=== PATIENT | female | born 1995 | race Caucasian/White ===

== ENCOUNTER 2021-06-12 18:59 | Emergency (ER) | payer BC, SELFPAY ==
--- NOTE | 2021-06-12 19:16 | PC.NURSE ---
No answer at 6, called back for triage.
--- NOTE | 2021-06-12 19:40 | PC.NURSE ---
Pt called for triage, no response at this time.
== END 2021-06-12 19:54 | disposition left against medical advice (07) ==
LOC: ANHED 19:53
PROVIDERS: PCP Family Medicine Adolescent Medicine
DX: Z53.21 Procedure and treatment not carried out due to patient leaving prior to being seen by health care provider (principal)
CPT/HCPCS: 99199

== ENCOUNTER 2021-06-12 19:39 | Emergency (ER) | payer BC, SELFPAY ==
--- NOTE | ~2021-06-12 | CT_ITS ---
EXAMINATION: CT abdomen pelvis w con DATE: 06/12/2021 21:22 INDICATION: Central periumbilical abdominal pain. History of gastric sleeve surgery 9 months ago. TECHNIQUE: Computed tomography (CT) of the abdomen and pelvis was performed with 100 cc Omnipaque 350 intravenous contrast. Automated exposure control and iterative reconstruction technique were employe d. Exam dose: 479.19 mGy-cm total exam DLP. COMPARISON: None. FINDINGS: There are a couple of right middle lobe calcified pulmonary nodules. The included lower keith g zones are clear of infiltrate or consolidation. Normal heart size. No pericardial or pleural effusion. Status post gastric sleeve surgery. The liver, gallbladder, bile ducts, pancreas and pancreatic duct as well as the spleen, and adrenal g lands and kidneys are unremarkable. No urinary tract calculus or hydroureteronephrosis. The urinary b ladder is relatively evacuated. 2.5 cm left ovarian cyst. Uterus and adnexal areas are otherwise unremarkable. Normal caliber of the abdominal aorta. No intraperitoneal or retroperitoneal or pelvic mass lesion or adenopathy or ascites is evident. No bowel obstruction or intraperitoneal free air. Normal appendix. Included skeletal structures are unremarkable. IMPRESSION: 2.5 cm left ovarian cyst Status post gastric sleeve surgery; no complication is visualized. Normal appendix Reviewed, dictated and finalized at [facility]. Reviewed, dictated and finalized at [facility]. [employer] WORK[employer]
[2021-06-12 19:45] VITALS: BP 104/65; PULSE 80; RESP 18; TEMP 36.4; O2SAT 99
--- NOTE | 2021-06-12 19:57 | ED.GENADULT ---
HPI - General Adult General Chief complaint: Abdominal Pain Stated complaint: abd pain Source: patient and family Mode of arrival: ambulatory History of Present Illness HPI narrative: Honey is a 26F with a PMH of PCOS, gastric sleeve surgery that presented to the emergency department with abdominal pain. It is a cramping abdominal pain that radiates to her RLQ and LLL. She denies any N/V and diarrhea. She had a BM today. She denies any fevers, chills, CP, SOB and lightheadedness. Related Data Home Medications Medication Instructions Recorded Confirmed methylphenidate HCl 27 mg PO BOLUS 06/12/21 06/12/21 venlafaxine 75 mg PO DAILY 06/12/21 06/12/21 Allergies Allergy/AdvReac Type Severity Reaction Status Date / Time No Known Allergies Allergy Unverified 03/18/18 16:00 Review of Systems Constitutional: Constitutional: Reports no additional constitutional complaints Eyes: Eyes: Reports no additional eye complaints ENT: Reports system reviewed and no additional complaints, except as documented Cardiovascular: Cardiovascular: Reports no additional cardiovascular complaints Respiratory: Respiratory: Reports no additional respiratory complaints Gastrointestinal: Gastrointestinal: Reports as per HPI Genitourinary: Genitourinary: Reports no additional female genitourinary complaints Musculoskeletal: Musculoskeletal: Reports no additional musculoskeletal complaints Integumentary/Breasts: Skin/Breast: Reports system reviewed and no additional complaints, except as docu Neurologic: Reports system reviewed and no additional complaints, except as documented Psychiatric: Psychiatric: Reports no additional psychiatric complaints Endocrine: Endocrine: Reports no additional endocrine complaints Hematologic/Lymphatic: Hematologic/Lymphatic: Reports no additional hematologic/lymphatic complaints Allergic/Immunologic: Allergic/Immunologic: Reports no additional allergic/immunologic complaints Exam Const: General: no acute distress and alert Orientation/consciousness: patient oriented x3 Limitations: No altered mental status HENMT: Head: normal to inspection Other: normocephalic, atraumatic Eyes: Pupils: Equal, round and reactive pupils present Neck: Neck: normal visual inspection Chest: Chest palpation & inspection: normal inspection of the chest Resp: Effort & Inspection: normal respiratory effort Auscultation: clear to auscultation bilaterally Cardio: Rate: regular rate Rhythm: regular rhythm GI: GI Palp: Yes Soft to palpation, Yes Tenderness to palpation present (GI) (diffusely TTP, most TTP in the RLQ and above the right iliac fossa ), No Guarding due to palpation present (GI), No Rigid due to palpation, No Palpable mass present and No Rebound tenderness present Other: negative obturator and psoas signs : General: Yes no CVA tenderness Other: Significant suprapubic tenderness Skin: General skin exam: normal color Rashes: no rashes Neuro: General: patient oriented x3 Extrem: General: normal to inspection Psych: Appearance: grossly normal Mental Status: mental status grossly normal Course Course Emergency Course: Honey declined pain meds. Labs showed some anemia and an elevated CRP so a CT was ordered. EXAMINATION: CT abdomen pelvis w con DATE: 06/12/2021 21:22 INDICATION: Central periumbilical abdominal pain. History of gastric sleeve surgery 9 months ago. TECHNIQUE: Computed tomography (CT) of the abdomen and pelvis was performed with 100 cc Omnipaque 350 intravenous contrast. Automated exposure control and iterative reconstruction technique were employed. Exam dose: 479.19 mGy-cm total exam DLP. COMPARISON: None. FINDINGS: There are a couple of right middle lobe calcified pulmonary nodules. The included lower lung zones are clear of infiltrate or consolidation. Normal heart size. No pericardial or pleural effusion. Status post gastric sleeve surgery. The liver, gallblad
[2021-06-12 20:29] LABS: Basophils Absolute Auto 0.01 K/mm3 (0.00-0.10); Basophils Percent Auto 0.1 % (0.0-1.0); Eosinophils Absolute Auto 0.04 K/mm3 (0.02-0.50); Eosinophils Percent Auto 0.5 % (1.0-6.0); Hematocrit 31.9 % (35.0-49.0); Hemoglobin 10.9 g/dL (12.0-15.0); Immature Granulocyte Absolute 0.03 K/mm3 (0.00-0.00); Immature Granulocyte Percent A 0.4 % (0.0-0.0); Lymphocytes Absolute Auto 1.77 K/mm3 (1.10-4.50); Lymphocytes Percent Auto 21.4 % (18.0-42.0); Mean Corpuscular HGB Conc 34.2 g/dL (32.0-36.0); Mean Corpuscular Hemoglobin 31.2 pg (27.0-31.0); Mean Corpuscular Volume 91.4 fL (78.0-102.0); Mean Platelet Volume 11.2 fl (9.2-11.8); Monocytes Absolute Auto 0.51 K/mm3 (0.10-0.90); Monocytes Percent Auto 6.2 % (2.0-11.0); Neutrophils Absolute Auto 5.9 K/mm3 (1.7-7.2); Neutrophils Percent Auto 71.4 % (50.0-70.0); Platelet Count Result 153 K/mm3 (150-420); Red Blood Count 3.49 M/mm3 (4.20-5.40); Red Cell Distribution Width 12.2 % (11.6-14.4); White Blood Count 8.3 K/mm3 (4.8-10.8)
[2021-06-12 20:35] LABS: Appearance Urine Clear (Clear); Bilirubin Urine 2+ (Negative); Blood Urine Negative (Negative); Glucose Urine UA Negative (Negative); Ketones Urine 2+ (Negative); Leukocyte Esterase Ur Trace (Negative); Nitrate Urine Negative (Negative); Protein Urine 1+ (Negative); Specific Grav Ur >= 1.030 (1.010-1.020); pH Urine 5.5 (5.0-8.0)
[2021-06-12 20:42] LABS: Add Urine Microscopic? YES; Color Urine Dark Orange (Yellow); RBC Urine 0-2 /hpf (0-2); Squamous Epithelial Cell Urine Few /hpf (Few); WBC Urine 0-3 /hpf (0-3)
[2021-06-12 20:43] LABS: Pregnancy On Board Control Positive; Urine Pregnancy Test Negative
[2021-06-12 20:43] LABS: Bacteria Urine Trace /hpf; Mucus Urine Moderate /lpf
[2021-06-12 20:48] LABS: Lactic Acid Reflex 0.7 mmol/L (0.4-2.0); SARS-CoV-2 Ag Negative (Negative)
[2021-06-12 20:52] LABS: Alanine Aminotransferase 16 U/L (14-59); Albumin Level 3.5 g/dL (3.4-5.0); Alkaline Phosphatase 47 U/L (46-116); Anion Gap 6 mmol/L (8-16); Aspartate Amino Transferase 11 U/L (15-37); Bilirubin,Total 0.5 mg/dL (0.00-1.00); Blood Urea Nitrogen 9 mg/dL (7-18); Calcium 8.7 mg/dL (8.5-10.1); Carbon Dioxide 29 mmol/L (21-32); Chloride 105 mmol/L (98-108); Estimated CRCL calculation 116 ml/min; Estimated Glomerular Filt Rate > 60; Glucose 81 mg/dL (70-99); Osmolality Calculated 287 mOsm/kg (285-295); Potassium 3.5 mmol/L (3.5-5.1); Sodium 140 mmol/L (136-145); Total Protein 6.4 g/dL (6.4-8.2)
[2021-06-12 20:53] LABS: CRP 6.5 mg/dL (0.0-0.9)
[2021-06-12 21:30] VITALS: BP 110/75; PULSE 65; RESP 18; O2SAT 100
[2021-06-12 22:19] VITALS: BP 117/70; PULSE 80; RESP 18; TEMP 36.6; O2SAT 98
== END 2021-06-12 22:24 | disposition home or self-care (01) ==
PROVIDERS: Emergency Provider Family Medicine; PCP Family Medicine Adolescent Medicine
DX: N83.202 Unspecified ovarian cyst, left side (principal); Z20.822 Contact with and (suspected) exposure to COVID-19
CPT/HCPCS: 36415; 74177; 80053; 81001; 81025; 83605; 85025; 86140; 87426; 99282; 99284; C9803; Q9967

== ENCOUNTER 2021-12-01 14:17 | Outpatient (CLI) | payer BC, SELFPAY ==
--- NOTE | ~2021-12-01 | US_ITS ---
US OB <= 14 weeks fetus DATE: 12/01/2021 14:43 INDICATION: Uncertain dates TECHNIQUE: Real-time imaging and Doppler analysis COMPARISON: None FINDINGS: Live campbell intrauterine gestation, fetus in longitudinal lie, breech presentation with heart rate of 153 bpm. Anterior placenta, lower margin 3 cm above the internal os. Subjectively normal amount of amniotic fluid. [place]-rump length 8.44 cm; 14 weeks 2 days Biparietal diameter 2.57 cm; 14 weeks 3 days Head circumference 9.74 cm; 14 weeks 3 days Abdominal circumference 7.80 cm; 14 weeks 2 days Femur length 1.42 cm; 14 weeks 1 day Composite age by Hadlock formula is 14 weeks 2 days +/- 1 week, with OLVIN of 05/30/2022. Estimated weight is 93.1 +/- 14 g. Estimated weight GP: 40.3% Head circumference/abdominal circumference 1.25, within normal range of 1.08-1.36 IMPRESSION: Estimated gestational age is 14 weeks 2 days +/- 1 week, with OLVIN of 05/30/2022 Breech presentation Reviewed, dictated and finalized at [facility]. Reviewed, dictated and finalized at [facility]. IMPRESSION: Estimated gestational age is 14 weeks 2 days +/- 1 week, with OLVIN o f 05/30/2022 Breech presentation
== END 2021-12-01 14:18 ==
PROVIDERS: PCP Family Medicine Adolescent Medicine; Visit Provider Obstetrics & Gynecology Gynecology
DX: Z36.87 Encounter for antenatal screening for uncertain dates (principal); Z3A.14 14 weeks gestation of pregnancy
CPT/HCPCS: 76801

== ENCOUNTER 2021-12-01 15:30 | Outpatient (CLI) | payer BC, SELFPAY ==
[2021-12-01 15:53] LABS: Basophils Absolute Auto 0.01 K/mm3 (0.00-0.10); Basophils Percent Auto 0.2 % (0.0-1.0); Eosinophils Absolute Auto 0.02 K/mm3 (0.02-0.50); Eosinophils Percent Auto 0.3 % (1.0-6.0); Hematocrit 33.3 % (35.0-49.0); Hemoglobin 11.6 g/dL (12.0-15.0); Immature Granulocyte Absolute 0.02 K/mm3 (0.00-0.00); Immature Granulocyte Percent A 0.3 % (0.0-0.0); Lymphocytes Absolute Auto 1.26 K/mm3 (1.10-4.50); Lymphocytes Percent Auto 20.1 % (18.0-42.0); Mean Corpuscular HGB Conc 34.8 g/dL (32.0-36.0); Mean Corpuscular Hemoglobin 31.6 pg (27.0-31.0); Mean Corpuscular Volume 90.7 fL (78.0-102.0); Mean Platelet Volume 9.9 fl (9.2-11.8); Monocytes Absolute Auto 0.26 K/mm3 (0.10-0.90); Monocytes Percent Auto 4.2 % (2.0-11.0); Neutrophils Absolute Auto 4.7 K/mm3 (1.7-7.2); Neutrophils Percent Auto 74.9 % (50.0-70.0); Platelet Count Result 187 K/mm3 (150-420); Red Blood Count 3.67 M/mm3 (4.20-5.40); Red Cell Distribution Width 12.4 % (11.6-14.4); White Blood Count 6.3 K/mm3 (4.8-10.8)
[2021-12-01 16:16] LABS: Hemoglobin A1C 4.8 % (<5.7)
[2021-12-01 16:43] LABS: Free T4 Free Thyroxine 0.95 ng/dL (0.76-1.46); Thyroid Stimulating Hormone 2.37 uIU/mL (0.36-3.74); Vitamin B12 581 pg/mL (193-986)
[2021-12-01 16:59] LABS: HIV 1 P24 AG Negative (Negative); HIV 1/2 AB Negative (Negative)
[2021-12-04 14:51] LABS: RPR Screen Non-Reactive (Non-Reactive)
[2021-12-05 03:50] LABS: Hepatitis B Surface Antigen Nonreactive (Nonreactive); Hepatitis C Signal to Cutoff 0.01 ratio (<1.00); Hepatitis C Virus Antibody Nonreactive (Nonreactive)
[2021-12-06 09:33] LABS: Rubella IgG Antibody 2.45 Index
[2021-12-06 14:04] LABS: Vitamin D 25 Hydroxy 34 ng/mL (30-100)
== END 2021-12-01 15:31 | disposition home or self-care (01) ==
PROVIDERS: PCP Family Medicine Adolescent Medicine; Visit Provider Obstetrics & Gynecology Gynecology
DX: Z36.9 Encounter for antenatal screening, unspecified (principal)
CPT/HCPCS: 36415; 82306; 82607; 83036; 84439; 84443; 85025; 86592; 86703; 86705; 86762; 86850; 86900; 86901; 87522

== ENCOUNTER 2022-01-05 10:20 | Outpatient (CLI) | payer BC, SELFPAY ==
--- NOTE | ~2022-01-05 | US_ITS ---
EXAMINATION: US OB /maternal detail DATE: 01/05/2022 11:15 INDICATION: Encounter for screening, unspecified. TECHNIQUE: Real-time ultrasound of the pelvis was performed. COMPARISON: Ultrasound 12/01/2021 FINDINGS: There is a single living fetus in vertex presentation. The placenta is anterior, 7.3 cm from the cer vix. heart rate is 138 beats per minute (bpm). The amniotic fluid volume is subjectively normal . The cervical length is normal. The following biometric data were obtained: Biparietal diameter (BPD): 4.3 cm; head circumference (HC): 16.3 cm; abdominal circumference (AC): 13 .3 cm; femur length (FL): 2.6 cm. These measurements are concordant. Estimated weight is 243 g +/- 36 g, which correlates with the 11th percentile when 05/30/22 is used as estimated date of delivery. As single measurements, these parameters are each equal to the following estimated gestational ages w ith ranges of +/- 2 standard deviations: BPD: 18 weeks 6 days (17 weeks 1 days - 20 weeks 5 days). HC: 19 weeks 1 days (17 weeks 4 days - 20 weeks 4 days). AC: 18 weeks 6 days (16 weeks 5 days - 20 weeks 6 days). FL: 18 weeks 0 days (16 weeks 4 days - 19 weeks 2 days). estimated gestational age based solely on measurements from this exam is 18 weeks 5 days +/- 1 weeks 2 days. The cerebral ventricles, cerebellum, cisterna magna, nuchal fold, lip, and visualized portions of the spine are normal. The heart is normal. The diaphragm, stomach, kidneys, and bladder are normal. Ther e are two umbilical arteries to yield a 3-vessel cord. The cord insertion is normal. IMPRESSION: 1. Single living fetus in vertex presentation. 2. Estimated weight is 243 g +/- 36 g, which correlates with the 11th percentile when 05/30/22 is used as estimated date of delivery. This date was set by ultrasound on 12/01/2021. 3. Normal anatomic survey. Reviewed, dictated and finalized at [facility]. IMPRESSION: 1. Single living fetus in vertex presentation. 2. Estimated weight is 243 g +/- 36 g, which correlates with the 11th pe rcentile when 05/30/22 is used as estimated date of delivery. This date was set by ultrasound on 12/01/2021. 3. Normal anatomic survey.
== END 2022-01-05 10:21 ==
PROVIDERS: PCP Family Medicine Adolescent Medicine; Visit Provider Obstetrics & Gynecology Gynecology
DX: Z36.9 Encounter for antenatal screening, unspecified (principal); Z3A.00 Weeks of gestation of pregnancy not specified
CPT/HCPCS: 76805

== ENCOUNTER 2022-03-15 12:08 | Outpatient (CLI) | payer SELFPAY ==
[2022-03-15 13:23] LABS: Hematocrit 31.7 % (35.0-49.0); Hemoglobin 10.9 g/dL (12.0-15.0)
[2022-03-15 13:48] LABS: HIV 1 P24 AG Negative (Negative); HIV 1/2 AB Negative (Negative)
[2022-03-15 13:49] LABS: Free T4 Free Thyroxine 0.83 ng/dL (0.76-1.46); Thyroid Stimulating Hormone 1.34 uIU/mL (0.36-3.74)
[2022-03-15 13:50] LABS: Glucose 1 Hour PP 50gm Dose 102 mg/dL (70-130)
[2022-03-17 21:46] LABS: Vitamin D 25 Hydroxy 38 ng/mL (30-100)
== END 2022-03-15 12:09 | disposition home or self-care (01) ==
LOC: CHSLAB 12:11
PROVIDERS: PCP Family Medicine Adolescent Medicine; Visit Provider Advanced Practice Midwife
DX: E03.9 Hypothyroidism, unspecified (principal); Z36.9 Encounter for antenatal screening, unspecified
CPT/HCPCS: 36415; 82306; 82947; 84439; 84443; 85014; 85018; 86703

== ENCOUNTER 2022-05-22 12:32 | Outpatient (CLI) | payer BC, OTHER, SELFPAY ==
[2022-05-22 13:22] LABS: Hematocrit 33.3 % (37.0-47.0); Hemoglobin 11.6 g/dL (12.0-15.0); Immature Platelet Fraction Pct 9.4 % (0.9-11.2); Mean Corpuscular HGB Conc 34.8 g/dl (32-36); Mean Corpuscular Hemoglobin 30.6 pg (26-34); Mean Corpuscular Volume 87.9 fl (80-100); Mean Platelet Volume 11.4 fl (7.4-10.4); Platelet Count Result 149 k/mm3 (150-375); Red Blood Count 3.79 M/mm3 (4.2-5.4); Red Cell Distribution Width 12.6 % (11.5-14.5)
[2022-05-22 16:13] LABS: Rapid Plasma Reagin Non-Reactive (NonReactive)
== END 2022-05-22 12:33 | disposition home or self-care (01) ==
LOC: ANHLAB 12:35
PROVIDERS: PCP Family Medicine Adolescent Medicine; Visit Provider Obstetrics & Gynecology Gynecology
DX: Z01.818 Encounter for other preprocedural examination (principal)
CPT/HCPCS: 36415; 85027; 85055; 86592; 86850; 86900; 86901

== ENCOUNTER 2022-05-23 05:21 | Inpatient (IN) | payer BC, OTHER, SELFPAY ==
--- NOTE | 2022-05-22 21:43 | PM.IMHP ---
H&P: HPI History of Present Illness Date/Time: 05/22/22 21:43 Chief Complaint: repeat csection and BTL Narrative: 27 yo admitted at 39 wks for repeat csection and BTL. Options for delivery were reviewed with the risks of and repeat csection. The patient declines trial of labor. She has completed her childbearing and wishes to proceed with permanent steilization. The patient is aware this is a permanent procedure rendering her unable to conceive. Discussed risks including failure with increased risk of ectopic if fails. She agrees to proceed. Patient has been uncomplicated. labs : A+, RPR -, HIV-, HBSAg -, GBS +, Rubella Immune. Review of Systems Review of Systems: Good movement, no contractions, no PIH sx. PMFSH Past Medical History Medical History (Updated 05/22/22 @ 21:51 by Hiral Gore MD) Attention-deficit hyperactivity disorder, predominantly inattentive type Delivery with history of 39 wks breech with GDMA2 LTCS 6#15 oz female Hypothyroid Marijuana use quit with PCOS (polycystic ovarian syndrome) Surgical History Surgical History (Updated 05/22/22 @ 21:51 by Hiral Gore MD) History of bariatric surgery 08/2020 gastric sleeve Family History Family History Father Acute myocardial infarction Cerebrovascular accident Heart disease Hypertension Grandparent Acute myocardial infarction Heart disease Hypertension Grandparent Depression Hypertension Sibling Depression Mother Hypertension Social History Social History Smoking packs per day: 1 Smoking cigarettes per day: 20.0 Years smoked: 7 Smoking pack-years: 7.00 Smoking status: Former smoker Tobacco type: cigarettes Smoking end date: 06/17/16 Alcohol intake: never Substance use: never Substance use type: marijuana Other substance usage details: daily Additional living arrangements comments: Spouse and daughter Gender identity (if verbalized by the patient): Female Sexual Orientation (if Verbalized by the Patient): Straight or Heterosexual Spiritual care concerns: No Agree to blood products: Yes Meds Home Medications and Allergies Home Medications Medication Instructions Recorded Confirmed Type prenat.vits,jean-claude,[id number] 1 tablet PO DAILY 05/04/22 05/04/22 History Allergies Allergy/AdvReac Type Severity Reaction Status Date / Time No Known Allergies Allergy Unverified 03/18/18 16:00 Exam Const: General: healthy appearing and alert Orientation/consciousness: patient oriented x3 Resp: Effort & Inspection: normal respiratory effort GI: GI Palp: Yes Soft to palpation, No Tenderness to palpation present (GI) and Yes Other GI palpation findings present (fundal height 37) Auscultation: other (FHTs 140's) : External Female Exam: normal external appearance Speculum Exam - Vagina: normal appearance of the vagina Manual OB Exam: Not dilated nor effaced Neuro: General: patient oriented x3 Assessment and Plan Assessment and plan (1) 39 weeks gestation of : Code(s): Z3A.39 - 39 weeks gestation of Status: Acute (2) History of : Code(s): Z98.891 - History of uterine scar from previous surgery Status: Acute Assessment and Plan: Plan to proceed with repeat csection (3) Encounter for sterilization: Code(s): Z30.2 - Encounter for sterilization Status: Acute Assessment and Plan: plan to proceed with BTL
[2022-05-23] VITALS (49 sets, daily range): BP systolic 101–124; BP diastolic 55–75; PULSE 51–98; RESP 11–18; TEMP 36.2–36.6; O2SAT 98–100; BMI 34.4
--- NOTE | 2022-05-23 05:40 | LDADM ---
This patient, Honey Castorena, was admitted to Labor/Delivery/Recovery 120 on 05/23/22 at 05:21. Plans for labor, pain management and were discussed with patient. Patient/family oriented to hospital policies and general routines including ID bracelet, bed and alarms, visiting hours, pain management, procedures, bathroom and other care routines, personal items, smoking policy, room service/diet and guest tray routines, security routines, and visiting hours. Patient/Family are encouraged to report perceived risks to care and to ask questions if they do not understand what they are told or what they should do. See OBIX for further documentation.
[2022-05-23] MEDS: LACTATED RINGERS 1,000 ML 125 ML IV CONT ×2 (05:52→06:56)
--- NOTE | 2022-05-23 06:28 | WPDANESEPPF ---
Anes - Initial Pre Proc Eval Procedure: Operation Date: 05/23/22 07:30 Proposed Procedures p Repeat Section with Tubal Ligation - Hiral Gore MD Date/Time: 05/23/22 06:28 Surgeon: Hiral Gore MD Pre Op Diagnosis: Repeat Patient Data Age: 27 Gender: F Height: 1.65 m Weight: 94 kg Last Vital Signs Pulse 97 05/23/22 06:00 BP 101/67 05/23/22 06:00 Pulse Ox 99 05/23/22 06:10 O2 Del Method Room Air 05/23/22 05:38 Allergies Allergy/AdvReac Type Severity Reaction Status Date / Time No Known Allergies Allergy Unverified 03/18/18 16:00 Home Medications Medication Instructions Recorded Confirmed Type prenat.vits,jean-claude,zlt-rque-rrxml 1 tablet PO DAILY 05/04/22 05/04/22 History Patient hx anesthesia problems: none Family hx anesthesia problems: none Results Review: All pre-operative results and documents have been reviewed as part of the pre-operative evaluation. [facility] Past Medical History Medical History Attention-deficit hyperactivity disorder, predominantly inattentive type Delivery with history of 39 wks breech with GDMA2 LTCS 6#15 oz female Hypothyroid Marijuana use quit with PCOS (polycystic ovarian syndrome) Surgical History Surgical History History of bariatric surgery 08/2020 gastric sleeve Family History Family History Father Acute myocardial infarction Cerebrovascular accident Heart disease Hypertension Grandparent Acute myocardial infarction Heart disease Hypertension Grandparent Depression Hypertension Sibling Depression Mother Hypertension Social History Social History Smoking packs per day: 1 Smoking cigarettes per day: 20.0 Years smoked: 7 Smoking pack-years: 7.00 Smoking status: Former smoker Tobacco type: cigarettes Second hand tobacco smoke exposure: No Smoking end date: 06/17/16 Alcohol intake: never Substance use: never Substance use type: marijuana Other substance usage details: daily Lack of Transportation: No Lack of Food: Never True Current Housing: I Do Not Have Housing Concerned About Future Housing: No Difficulty Paying Gas/Electric Bills: No Difficulty Paying for Meds: No Currently Unemployed: No Education: Associate Degree Difficulty w/ Childcare or Family Care: No Additional living arrangements comments: Spouse and daughter Gender identity (if verbalized by the patient): Female Sexual Orientation (if Verbalized by the Patient): Straight or Heterosexual Spiritual care concerns: No Agree to blood products: Yes Anes - Eval Final PreProcedure Day of Procedure 05/23/22 06:28 Patient weight: obese Heart: regular rate and rhythm Lungs: clear to auscultation Airway: Mallampati scale class II Neurological: alert and oriented Last oral intake: >/= 8 hours ASA classification: III Emergent: no Anesthetic plan: proceed Anesthesia type and monitoring: regional spinal and standard monitoring Results Review: All pre-operative results and documents have been reviewed as part of the pre-operative evaluation. Informed Consent: The patient's anesthetic plan and its attendant risks and benefits were discussed with the patient/family/POA. Questions were solicited and answers provided to the satisfaction of the patient/family/POA.
[2022-05-23] MEDS: ceFAZolin 2 GM/D5W 50 ML 2 GM/50 ML BAG IVPB (06:57)
--- NOTE | 2022-05-23 07:18 | WPDHPUPDATE1 ---
History and Physical Update Update Date/Time: 05/23/22 07:18 History and Physical has been reviewed, including an updated exam of the patient. There are NO changes in the patient's condition. Risks, benefits, and alternatives have been discussed and questions answered. Patient agrees to proceed with procedure.
--- NOTE | 2022-05-23 08:19 | W.PM.PROC2 ---
Procedure Note - Detailed Date of Procedure 05/23/22 Pre-op Diagnosis intrauterine at 39 weeks Repeat Tubal ligation bradycardia Post-op Diagnosis Same Procedure Performed repeat low-transverse section and bilateral tubal ligation Surgeon Hiral Gore MD Anesthesia Spinal Findings male infant 6lb 13oz with 7 1minute and 8 ii1nsainep Apgars; normal-appearing tubes, ovary, uterus Description of Procedure I was called to the operating room after 7 nurse had attempted to find heart tones for 5minutes. She states she kept finding 80 to 85 heart rate. Would on my arrival to the operating room I called for an emergent . The patient was prepped quickly prepped and draped and anesthesia was deemed adequate. A Pfannenstiel skin incision was made with a scalpel and carried down to the underlying layer of fascia which was nicked in the midline and extended laterally using Belcher scissors. [facility] were used to tent the fascia which was then dissected off using sharp dissection. The peritoneum was entered and extended with blunt traction. The bladder blade was placed and the vesicouterine peritoneum grasped and entered with Metzenbaum and extended laterally. Bladder flap was created digitally. The bladder blade was replaced and the lower uterine segment was incised in a transverse fashion. The incision was extended with lateral traction. The infant's head was brought into the incision and with difficulty was delivered using the kiwi. After the pop-off the scar tissue at the fascia was extended laterally and the scar tissue at peritoneal incision was extended laterally using Bovie cautery. Once the infant was fully delivered with the assistance of the kiwi the was fully delivered and the cord around the neck was reduced. The cord was quickly clamped and cut. The was crying on the abdomen and had fair tone. The infant was handed to the waiting nursery nurse and paint stockman. The cord gases and cord blood were drawn. The placenta was removed using manual traction. The uterus is cleared of all clots and debris and exteriorized. The uterine incision was closed using 0 Monocryl in a running locked fashion with the same suture used to imbricate. Good hemostasis is noted. The patient was asked 1 additional time if she wanted to proceed with tubal ligation and she stated she did. The right tube was grasped with a [place] and using a curved Z clamp the distal 2/3 of the tube are crossclamped and excised. The pedicle is tied off using 0 Vicryl in a Mandy stitch as well as a free tie. The identical procedure was performed on the left side. The distal portion of the tube had piece of mesosalpinx that did not remain in the clamp. This area was noted to have some oozing. The mesial salpinx is grasped with the Z clamp and the pedicle tied off using 0 Vicryl in a Mandy stitch. Good hemostasis is then noted at the left tubal site. The right tubal site and the uterine incision are again inspected and noted to both to be hemostatic. The uterus is then returned to the abdomen and the incision again inspected and noted to be hemostatic. The fascia was closed using 0 Vicryl in a running fashion. Subcutaneous tissues are irrigated and made hemostatic using Bovie cautery. The skin is closed using 4-0 Vicryl in a subcuticular fashion. Dermaflex was placed over the incision. Sponge, needle, and instrument counts are correct per the OR staff. The patient received Ancef prior to cord clamp. The findings and procedure were reviewed immediately after the case with the patient. Estimated Blood Loss 195 Drains Yes ( Baez catheter) Pathology Yes ( bilateral tubal segment) Complications Other complications ( bradycardia after spinal) Condition Stable Disposition Floor
--- NOTE | 2022-05-23 08:28 | PM.OBDSVD ---
DS: Admitting Diagnosis Discharge Date 05/25/22 Admitting Diagnosis IUP 39 wks Prior csection requesting tubal ligation DS: Discharge Diagnosis Discharge Diagnosis (1) History of : Code(s): Z98.891 - History of uterine scar from previous surgery Status: Acute (2) Encounter for sterilization: Code(s): Z30.2 - Encounter for sterilization Status: Acute (3) 39 weeks gestation of : Code(s): Z3A.39 - 39 weeks gestation of Status: Acute (4) delivery delivered: Code(s): O82 - Encounter for delivery without indication Status: Acute OB - DS: Summary OB Procedures : Ultrasound OB Procedures Intrapartum: low cervical, transverse and Tubal ligation OB Procedures: : None Peripartum Data Delivery Method: Section Procedures: Procedures Operation Date: 05/23/22 07:30 <No data on this case meets the specified criteria> complications: none Status at Discharge Functional status at discharge: independent ambulation Overall status at discharge: patient is progressing back to baseline Time Spent with Patient Time attestation: Total time spent providing and/or coordinating discharge services: Discharge Plan Discharge Attending physician on discharge: Hiral Gore Discharging Clinician: Hiral Gore Anticipated Discharge Date/Time: 05/25/22 08:29 Patient Disposition: Home, Self-Care Activity: may shower, may drive after 2 weeks and pelvic rest Diet: regular Wound Care Instructions: incision open to air Patient Instructions: Antibiotic Form Stand Alone Forms: General Discharge Information Follow-up/Referrals: Hiral Gore MD [Physician] - 1 Week ( and 6 week) Discharge Medications: New hydrocodone-acetaminophen 5-325 mg tablet 1 tablet PO Q4H PRN (Reason: pain) Qty: 10 0RF Continued #2 Tablet 1 tablet PO DAILY Date of admission: 05/23/22 05:21 Primary Care Provider: Urbano Bee Admitting Provider: Hiral Gore Attending physician on admission: Hiral Gore Condition: Stable
[2022-05-23] MEDS: KETOROLAC 30 MG/ML VIAL (*BKC) 15 MG IV PUSH (09:04)
[2022-05-23] MEDS: OXYTOCIN 30 UNITS/NS 500 ML 30 UNITS/500 ML BAG 125 UNITS IV CONT (09:04)
[2022-05-23] MEDS: ONDANSETRON INJ 4 MG/2 ML VIAL IV PUSH (10:35)
--- NOTE | 2022-05-23 11:11 | OBPPTRN ---
Patient transferred to post room #278 via stretcher. Support person present. Oriented to unit, room, information board, rooming in, admission packet and security measures. Patient verbalizes understanding.
[2022-05-23] MEDS: KETOROLAC 30 MG/ML VIAL (*BKC) IV PUSH (11:32)
[2022-05-23] MEDS: DEXTROSE 5%/0.45% SOD CHL 1,000 ML 125 ML IV CONT (13:46)
[2022-05-23] MEDS: DOCUSATE SODIUM 100 MG CAPSULE PO (16:23)
[2022-05-24 00:15] VITALS: BP 115/64; PULSE 65; RESP 16; TEMP 36.7; O2SAT 99
[2022-05-24] MEDS: HYDROcodone/acetaminophen (*CRX) 10-325 MG TABLET 1 TAB PO ×4 (05:17→19:42)
[2022-05-24] MEDS: IBUPROFEN 600 MG TABLET PO (05:18)
[2022-05-24 05:20] VITALS: BP 120/70; PULSE 71; RESP 16; TEMP 36.8; O2SAT 100
[2022-05-24 06:29] LABS: Basophils Percent Auto 0.1 % (0.2-1.2); Eosinophils Percent Auto 0.1 % (0-4.4); Hematocrit 28.7 % (37.0-47.0); Hemoglobin 9.4 g/dL (12.0-15.0); Immature Granulocyte Absolute 0.02 K/mm3 (0.00-0.031); Immature Granulocyte Percent A 0.3 % (0-0.5); Immature Platelet Fraction Pct 8.8 % (0.9-11.2); Lymphocytes Absolute Auto 1.09 K/mm3 (0.9-3.2); Lymphocytes Percent Auto 15.3 % (18.3-44.2); Mean Corpuscular HGB Conc 32.8 g/dl (32-36); Mean Corpuscular Hemoglobin 29.9 pg (26-34); Mean Corpuscular Volume 91.4 fl (80-100); Mean Platelet Volume 11.7 fl (7.4-10.4); Monocytes Absolute Auto 0.5 K/mm3 (0.1-0.6); Monocytes Percent Auto 6.6 % (2.6-8.5); Neutrophils Absolute Auto 5.5 K/mm3 (1.3-6.7); Neutrophils Percent Auto 77.6 % (45.5-73.1); Platelet Count Result 140 k/mm3 (150-375); Red Blood Count 3.14 M/mm3 (4.2-5.4); Red Cell Distribution Width 12.9 % (11.5-14.5); White Blood Count 7.1 K/mm3 (4.5-10.0)
[2022-05-24 08:00] VITALS: BP 105/56; PULSE 60; RESP 16; TEMP 36.8; O2SAT 99
--- NOTE | 2022-05-24 08:40 | WPDANLDPN2 ---
Anes-Prog Note L&D Date/Time: 05/24/22 08:40 Comfortable throughout: section Neuraxial method: spinal Epidural/Spinal procedure site: clean & non-tender Neuro status: Neuro function grossly intact. Cardiovascular status: normal Respiratory status: normal Airway patency: baseline Mental status: baseline Post-Op hydration status: normal Vital Signs: Last Vital Signs Temp 36.8 C 05/24/22 08:00 Pulse 60 05/24/22 08:00 Resp 16 05/24/22 08:00 BP 105/56 L 05/24/22 08:00 Pulse Ox 99 05/24/22 08:00 O2 Del Method Room Air 05/24/22 08:00 Pain score (VAS): 3/10 I/O: Intake & Output 05/23/22 05/24/22 05/24/22 23:59 07:59 15:59 Intake Total 726 700 Output Total 375 1125 Balance 351 -425 Post-procedural complaints: none Patient feedback: Patient satisfied with anesthetic care.
--- NOTE | 2022-05-24 08:40 | WPDANLDNPN2 ---
Anes-Prog Note L&D-Neuraxial Date/Time: 05/24/22 08:40 Neuraxial medications: intrathecal PF morphine Opiod-related complaints: none Patient feedback: Patient satisfied with post-operative pain management.
[2022-05-24] MEDS: DOCUSATE SODIUM 100 MG CAPSULE PO ×2 (09:40→16:14)
[2022-05-24] MEDS: POLYSACCHARIDE IRON COMPLEX 150 MG CAPSULE PO ×2 (09:40→16:14)
[2022-05-24] MEDS: SIMETHICONE 80 MG TAB.CHEW PO ×3 (09:41→19:47)
[2022-05-24 21:05] VITALS: BP 127/70; PULSE 78; RESP 16; TEMP 37.1; O2SAT 99
[2022-05-25] MEDS: HYDROcodone/acetaminophen (*CRX) 10-325 MG TABLET 1 TAB PO ×3 (00:18→11:54)
[2022-05-25] MEDS: SIMETHICONE 80 MG TAB.CHEW PO ×3 (00:22→11:54)
[2022-05-25] MEDS: DOCUSATE SODIUM 100 MG CAPSULE PO (07:01)
[2022-05-25] MEDS: POLYSACCHARIDE IRON COMPLEX 150 MG CAPSULE PO (07:01)
[2022-05-25 07:07] VITALS: PULSE 78; RESP 16; O2SAT 99
[2022-05-25 07:55] VITALS: BP 130/83; PULSE 72; RESP 18; TEMP 36.1; O2SAT 100
--- NOTE | 2022-05-25 09:05 | PM.OBPNVD ---
OB - PN: Subj Subjective Date/time seen: 05/25/22 09:05 Patient comments: no complaints and pain well controlled baby status: doing well OB - PN: Obj Data Labs 05/24/22 05:37 OB - PN A/P Plan day: 2 Plan: routine care and discharge home Time Spent With Patient Time: Total time spent is greater than 50% in coordination of care (as documented) at patient's floor/unit and/or counseling patient: Exam Narrative: inc c/d/i : Bimanual exam- vagina & uterus: other (Uterus firm, nt @U)
--- NOTE | 2022-05-25 11:57 | PC.NURSE ---
Patient was given the opportunity to view the discharge video Mother & Baby Care, The First Two Weeks and to ask questions. Patient declined viewing the video and has been given the mother/baby guide for home reference.
[2022-05-26 10:25] VITALS: BP 123/75; PULSE 82; RESP 20; TEMP 36.7; O2SAT 100
== END 2022-05-25 12:25 | disposition home or self-care (01) | DRG 785 ==
LOC: ANHLDR 11:06 → ANHOB2 11:07
PROVIDERS: Admitting Provider Obstetrics & Gynecology Gynecology; PCP Family Medicine Adolescent Medicine; Visit Provider Obstetrics & Gynecology Gynecology
PROC: 10D00Z1 Extraction of Products of Conception, Low, Open Approach (ICD-10-PCS; CPT 59514; principal; 2022-05-23 07:30)
DX: O34.211 Maternal care for low transverse scar from previous cesarean delivery (principal); Z37.0 Single live birth; Z3A.39 39 weeks gestation of pregnancy; O36.8330 Maternal care for abnormalities of the fetal heart rate or rhythm, third trimester, not applicable or unspecified; O99.824 Streptococcus B carrier state complicating childbirth; Z30.2 Encounter for sterilization; O99.284 Endocrine, nutritional and metabolic diseases complicating childbirth; E03.9 Hypothyroidism, unspecified; O99.344 Other mental disorders complicating childbirth; F90.0 Attention-deficit hyperactivity disorder, predominantly inattentive type
CPT/HCPCS: 36415; 85025; 85055; 88302; A9270; J0131; J0690; J1100; J1885; J2274; J2405; J2590; J7120

== ENCOUNTER 2022-12-08 08:13 | Outpatient (CLI) | payer OTHER, SELFPAY ==
[2022-12-08 08:35] LABS: Basophils Absolute Auto 0.03 K/mm3 (0.00-0.10); Basophils Percent Auto 0.5 % (0.0-1.0); Eosinophils Absolute Auto 0.07 K/mm3 (0.02-0.50); Eosinophils Percent Auto 1.1 % (1.0-6.0); Hematocrit 36.2 % (35.0-49.0); Hemoglobin 12.2 g/dL (12.0-15.0); Immature Granulocyte Absolute 0.03 K/mm3 (0.00-0.00); Immature Granulocyte Percent A 0.5 % (0.0-0.0); Lymphocytes Absolute Auto 1.14 K/mm3 (1.10-4.50); Lymphocytes Percent Auto 18.3 % (18.0-42.0); Mean Corpuscular HGB Conc 33.7 g/dL (32.0-36.0); Mean Corpuscular Hemoglobin 29.2 pg (27.0-31.0); Mean Corpuscular Volume 86.6 fL (78.0-102.0); Mean Platelet Volume 10.2 fl (9.2-11.8); Monocytes Absolute Auto 0.31 K/mm3 (0.10-0.90); Neutrophils Absolute Auto 4.7 K/mm3 (1.7-7.2); Neutrophils Percent Auto 74.6 % (50.0-70.0); Platelet Count Result 208 K/mm3 (150-420); Red Blood Count 4.18 M/mm3 (4.20-5.40); Red Cell Distribution Width 11.8 % (11.6-14.4); White Blood Count 6.2 K/mm3 (4.8-10.8)
[2022-12-08 09:25] LABS: Alanine Aminotransferase 18 U/L (14-59); Albumin Level 3.7 g/dL (3.4-5.0); Alkaline Phosphatase 67 U/L (46-116); Anion Gap 8 mmol/L (8-16); Aspartate Amino Transferase 14 U/L (15-37); Bilirubin,Total 0.6 mg/dL (0.00-1.00); Blood Urea Nitrogen 14 mg/dL (7-18); Carbon Dioxide 30 mmol/L (21-32); Chloride 104 mmol/L (98-108); Cholesterol 224 mg/dL (0-200); Estimated Glomerular Filt Rate > 60; Glucose 95 mg/dL (70-99); HDL Direct 55 mg/dL (40-60); LDL Cholesterol Calculated 150 mg/dL (<130); Osmolality Calculated 294 mOsm/kg (285-295); Sodium 142 mmol/L (136-145); Total Protein 6.9 g/dL (6.4-8.2); Triglycerides 93 mg/dL (0-150); Vitamin B12 742 pg/mL (193-986)
[2022-12-08 09:26] LABS: Thyroid Stimulating Hormone Reflex 1.77 u/IU/mL (0.36-3.74)
[2022-12-11 20:09] LABS: Vitamin D 25 Hydroxy 35 ng/mL (30-100)
== END 2022-12-08 08:14 | disposition home or self-care (01) ==
LOC: CHSLAB 08:15
PROVIDERS: PCP Nurse Practitioner Family; Visit Provider Nurse Practitioner Family
DX: Z13.220 Encounter for screening for lipoid disorders (principal); F41.8 Other specified anxiety disorders; D64.9 Anemia, unspecified
CPT/HCPCS: 36415; 80053; 80061; 82306; 82607; 84443; 85025

== ENCOUNTER 2023-08-21 07:52 | Outpatient (CLI) | payer OTHER, SELFPAY ==
[2023-08-21 08:03] LABS: Hematocrit 30.2 % (35.0-49.0); Hemoglobin 9.6 g/dL (12.0-15.0); Mean Corpuscular HGB Conc 31.8 g/dL (32.0-36.0); Mean Corpuscular Hemoglobin 25.5 pg (27.0-31.0); Mean Corpuscular Volume 80.3 fL (78.0-102.0); Mean Platelet Volume 9.7 fl (9.2-11.8); Platelet Count Result 138 K/mm3 (150-420); Red Blood Count 3.76 M/mm3 (4.20-5.40); Red Cell Distribution Width 12.9 % (11.6-14.4); White Blood Count 3.3 K/mm3 (4.8-10.8)
[2023-08-21 08:41] LABS: Alanine Aminotransferase 14 U/L (14-59); Albumin Level 3.6 g/dL (3.4-5.0); Alkaline Phosphatase 51 U/L (46-116); Anion Gap 8 mmol/L (8-16); Aspartate Amino Transferase 12 U/L (15-37); Bilirubin,Total 0.3 mg/dL (0.00-1.00); Blood Urea Nitrogen 12 mg/dL (7-18); Calcium 8.2 mg/dL (8.5-10.1); Carbon Dioxide 28 mmol/L (21-32); Chloride 104 mmol/L (98-108); Cholesterol 207 mg/dL (0-200); Estimated Glomerular Filt Rate > 60; Glucose 81 mg/dL (70-99); HDL Direct 66 mg/dL (40-60); LDL Cholesterol Calculated 129 mg/dL (<130); Osmolality Calculated 288 mOsm/kg (285-295); Potassium 4.2 mmol/L (3.5-5.1); Sodium 140 mmol/L (136-145); Total Protein 6.3 g/dL (6.4-8.2); Triglycerides 60 mg/dL (0-150)
== END 2023-08-21 07:53 | disposition home or self-care (01) ==
LOC: CHSLAB 07:54
PROVIDERS: PCP Family Medicine Adolescent Medicine; Visit Provider Nurse Practitioner Family
DX: G25.81 Restless legs syndrome (principal); F90.0 Attention-deficit hyperactivity disorder, predominantly inattentive type; F41.8 Other specified anxiety disorders; E78.00 Pure hypercholesterolemia, unspecified
CPT/HCPCS: 36415; 80053; 80061; 83735; 85027

== ENCOUNTER 2023-10-03 12:27 | Outpatient (CLI) | payer OTHER, SELFPAY ==
[2023-10-03 12:40] LABS: Basophils Absolute Auto 0.02 K/mm3 (0.00-0.10); Basophils Percent Auto 0.4 % (0.0-1.0); Eosinophils Absolute Auto 0.06 K/mm3 (0.02-0.50); Eosinophils Percent Auto 1.3 % (1.0-6.0); Hematocrit 34.8 % (35.0-49.0); Hemoglobin 11.3 g/dL (12.0-15.0); Immature Granulocyte Absolute 0.01 K/mm3 (0.00-0.00); Immature Granulocyte Percent A 0.2 % (0.0-0.0); Lymphocytes Absolute Auto 1.08 K/mm3 (1.10-4.50); Lymphocytes Percent Auto 23.2 % (18.0-42.0); Mean Corpuscular HGB Conc 32.5 g/dL (32-36); Mean Corpuscular Hemoglobin 27.2 pg (27.0-31.0); Mean Corpuscular Volume 83.7 fL (78.0-102.0); Mean Platelet Volume 10.3 fl (9.2-11.8); Monocytes Absolute Auto 0.19 K/mm3 (0.10-0.90); Monocytes Percent Auto 4.1 % (2.0-11.0); Neutrophils Percent Auto 70.8 % (50.0-70.0); Platelet Count Result 182 K/mm3 (150-420); Red Blood Count 4.16 M/mm3 (4.20-5.40); Red Cell Distribution Width 13.4 % (11.6-14.4); White Blood Count 4.7 K/mm3 (4.8-10.8)
[2023-10-03 14:11] LABS: Alanine Aminotransferase 15 U/L (14-59); Albumin Level 3.9 g/dL (3.4-5.0); Alkaline Phosphatase 56 U/L (46-116); Anion Gap 7 mmol/L (4-12); Aspartate Amino Transferase 15 U/L (15-37); Bilirubin,Total 0.4 mg/dL (0.00-1.00); Blood Urea Nitrogen 19 mg/dL (7-18); Calcium 8.6 mg/dL (8.5-10.1); Carbon Dioxide 30 mmol/L (21-32); Chloride 103 mmol/L (98-108); Estimated Glomerular Filt Rate > 60; Glucose 97 mg/dL (70-99); Iron 206 ug/dL (50-170); Osmolality Calculated 292 mOsm/kg (285-295); Percent Iron Saturation 50 % (12-57); Potassium 4.1 mmol/L (3.5-5.1); Sodium 140 mmol/L (136-145); Total Protein 6.8 g/dL (6.4-8.2); Vitamin B12 410 pg/mL (193-986)
== END 2023-10-03 12:28 | disposition home or self-care (01) ==
LOC: CHSLAB 12:29
PROVIDERS: PCP Nurse Practitioner Family; Visit Provider Nurse Practitioner Family
DX: E83.51 Hypocalcemia (principal); D64.9 Anemia, unspecified
CPT/HCPCS: 36415; 80053; 82607; 83540; 83550; 85025

== ENCOUNTER 2024-01-01 13:38 | Outpatient (CLI) | payer OTHER, SELFPAY ==
--- NOTE | ~2024-01-01 | US_ITS ---
Pelvic ultrasound. Clinical History: Abnormal uterine bleeding Technique: Realtime transabdominal and transvaginal scanning of the pelvis was performed. Color flow Doppler and Doppler spectral analysis were performed. Findings: The uterus is anteverted, and measures 10.1 x 3.5 x 5.1 cm. The endometrial stripe has a t hickness of 12 mm. Possible ill-defined 2.2 cm anterior wall intramural fibroid.. The right ovary measures 4.0 x 3.0 x 2.3 cm. No significant right ovarian or adnexal mass is seen. The left ovary measures 3.8 x 3.4 x 2.1 cm. No significant left ovarian or adnexal mass is seen. No evidence for ovarian torsion. There is no evidence of free fluid in the cul de sac. Impression: Possible ill-defined 2.2 cm uterine fibroid. Reviewed, dictated and finalized at [facility]. Impression: Possible ill-defined 2.2 cm uterine fibroid.
== END 2024-01-01 13:39 | disposition home or self-care (01) ==
LOC: CHSIMG 13:38
PROVIDERS: PCP Nurse Practitioner Family; Visit Provider Obstetrics & Gynecology Gynecology
DX: N93.8 Other specified abnormal uterine and vaginal bleeding (principal)
CPT/HCPCS: 76830; 76856

== ENCOUNTER 2024-01-31 09:13 | Outpatient (CLI) | payer OTHER, SELFPAY ==
[2024-01-31 10:15] LABS: Hematocrit 34.9 % (37.0-47.0); Hemoglobin 11.9 g/dL (12.0-15.0)
== END 2024-01-31 09:14 | disposition home or self-care (01) ==
LOC: ANHSURGERY 09:18
PROVIDERS: Anesthesiology; PCP Family Medicine Adolescent Medicine; Visit Provider Obstetrics & Gynecology Gynecology
DX: Z01.818 Encounter for other preprocedural examination (principal); D64.9 Anemia, unspecified
CPT/HCPCS: 36415; 85014; 85018

== ENCOUNTER 2024-02-03 01:38 | Day surgery (SDC) | payer OTHER, SELFPAY ==
[2024-01-27 12:53] VITALS: BMI 31.1
--- NOTE | 2024-01-27 13:01 | PC.NURSE ---
Addendum entered by Latesha Bustamante RN 01/27/24 13:08: PT INSTRUCTED TO TAKE FLUOXETINE AND CONCERTA, INSTRUCTED TO STOP HER IRON AND CALCIUM Original Note: Report to the Outpatient Waiting Room, entrance under the [facility] pavilion located off [facility], at time _1115__ on date _02/03/24_. Planned Procedure Time: _1315__. Time changes happen often and if your time is changed the preop area will call you the afternoon before. - You and your visitor will be asked to self-screen and do not enter if you have any COVID symptoms. - A mask is optional within the hospital at this time. Patients may have clear liquids (water, carbonated beverages, clear teas, apple juice) until 3 hours prior to surgery with a maximum of 20 ounces. - No food from midnight until time of surgery - Infants may have breast milk until 4 hours before surgery, formula 6 hours prior to surgery. - Children will be allowed to drink immediately following surgery. If applicable, please bring a bottle or sippy cup to assist with drinking. Juice, water, soda, and popsicles are readily available. For infants on formula, please bring formula the day of surgery. Pacifiers are allowed. Take the following medications with a SIP of water the morning of surgery: DO NOT STOP ANY OF YOUR OTHER PRESCRIPTION MEDICATIONS PRIOR TO SURGERY ?EXCEPT THE FOLLOWING Medications to discontinue per physician Date to take last dose Please no make-up, nail swedish, hairspray, perfume, deodorant, or body powder the day of surgery. No jewelry (including any body piercings) or valuables the day of surgery, leave them at home. Please take a shower or bath the night before, or the morning of, surgery with an antibacterial soap. Wear comfortable, loose fitting clothing. Children are encouraged to wear pajamas. - Jewelry must be removed prior to entering the operating room. Rings and piercings that are not removed may be cut off. - The hospital will not accept responsibility for valuables. - Please leave all valuables, including medications, at home the day of surgery. If you are going home after surgery, a licensed hearse driver must drive you home. - NO public transportation without another adult if you receive anesthesia. - We recommend that an adult stay with you for 24 hours following discharge. - We also recommend that you do not drive, make important decision, drink alcoholic beverages, or take any drugs that were not prescribed by your health care provider for at least 24 hours after your discharge time. For Pediatric surgeries, we recommend two adults accompany the child home. Follow any additional instructions given to you from your surgeon. If you or anyone in your household have experienced Covid symptoms in the past week, please notify your surgeon or the nurse liaison at the phone number below for possible testing. Telephone instructions given to PATIENT_and asked if any additional questions and then verbalized understanding. Patient advised to call surgeon office or pre surgery nurse liaison [phone] if any additional questions.
--- NOTE | 2024-02-03 08:47 | WPDHPUPDATE1 ---
History and Physical Update Update Date/Time: 02/03/24 08:47 History and Physical has been reviewed, including an updated exam of the patient. There are NO changes in the patient's condition. Risks, benefits, and alternatives have been discussed and questions answered. Patient agrees to proceed with procedure.
--- NOTE | 2024-02-03 08:47 | PM.HPGS ---
History of Present Illness History of Present Illness Consent: Risks, benefits, and alternatives have been discussed and questions answered. Patient agrees to proceed with procedure. Chief complaint: Menorrhagia, Hymen Remnant Narrative: Honey Castorena is a 28 year old female with menorrhagia resulting in anemia. It was recommended to undergo D&C hysteroscopy. Risks of infection, bleeding, perforation, and possible pathology are reviewed. Ultrasound shows a possible intramural fibroid. It was discussed if within the cavity and could be removed there is a possibility of fluid imbalance. In addition the patient reports a octopus like growth at her vaginal opening. On exam the patient has several prominent hymenal remnants. The patient wishes to have these removed as well. Review of Systems Review of Systems: not repeated day of surgery; patient states no changes in status PMFSH Past Medical History Medical History (Updated 02/03/24 @ 08:52 by Hiral Gore MD) Attention-deficit hyperactivity disorder, predominantly inattentive type Hypothyroid Marijuana use quit with PCOS (polycystic ovarian syndrome) Surgical History Surgical History (Updated 02/03/24 @ 08:51 by Hiral Gore MD) History of bariatric surgery 08/2020 gastric sleeve History of x2 Hx of tubal ligation 05/2022 with Family History Family History Father Acute myocardial infarction Cerebrovascular accident Heart disease Hypertension Grandparent Acute myocardial infarction Heart disease Hypertension Grandparent Depression Hypertension Sibling Depression Mother Hypertension Social History Social History Smoking packs per day: 1 Smoking cigarettes per day: 20.0 Years smoked: 10 Smoking pack-years: 10.00 Smoking status: Former smoker Tobacco type: cigarettes Second hand tobacco smoke exposure: No Smoking end date: 06/17/16 Additional smoking assessment comments: STOPPED 2019 Alcohol intake: former Substance use: never Substance use type: marijuana Other substance usage details: daily Lack of Transportation: No Lack of Food: Never True Current Housing: I Do Not Have Housing Concerned About Future Housing: No Difficulty Paying Gas/Electric Bills: No Difficulty Paying for Meds: No Currently Unemployed: No Education: High School Diploma/GED Difficulty w/ Childcare or Family Care: No Living arrangements: with family Additional living arrangements comments: Spouse and daughter Gender identity (if verbalized by the patient): Female Sexual Orientation (if Verbalized by the Patient): Straight or Heterosexual Spiritual care concerns: No Agree to blood products: Yes Meds Home Medications and Allergies Home Medications Medication Instructions Recorded Confirmed Type fluoxetine 20 mg tablet See Rx Instructions .Route 12/03/23 01/27/24 Rx .COMPLEX #90 tabs Concerta 36 mg tablet,extended 36 mg PO QAM #30 tabs 01/10/24 01/27/24 Rx release (methylphenidate HCl) aluminum chloride 20 % topical 1 applic topical PRN PRN Skin 01/27/24 01/27/24 History solution Irritation calcium 500 mg tablet 500 mg PO DAILY 01/27/24 01/27/24 History ferrous sulfate 325 mg (65 mg 325 mg PO DAILY 01/27/24 01/27/24 History iron) tablet (iron) Allergies Allergy/AdvReac Type Severity Reaction Status Date / Time No Known Allergies Allergy Verified 01/27/24 12:52 Exam Const: General: healthy appearing and alert Orientation/consciousness: patient oriented x3 Resp: Effort & Inspection: normal respiratory effort GI: GI Palp: Yes Soft to palpation, No Tenderness to palpation present (GI) and No Palpable mass present : External Female Exam: other ( enlarged hymenal remnants) Speculum Exam - Vagina:
[2024-02-03] MEDS: ACETAMINOPHEN 500 MG TABLET 1000 MG PO (11:24)
[2024-02-03 11:37] VITALS: BMI 32.2
[2024-02-03 11:38] VITALS: BP 113/73; PULSE 62; RESP 16; TEMP 36.8; O2SAT 100
[2024-02-03 11:39] LABS: BEDSIDEPREGUCG Negative
--- NOTE | 2024-02-03 11:58 | WPDANESEPPF ---
Anes - Initial Pre Proc Eval Procedure: Operation Date: 02/03/24 13:15 Proposed Procedures p Hysteroscopy Dilation and Curettage, Removal of Hymen Remnant - Hiral Gore MD Date/Time: 02/03/24 11:58 Surgeon: Hiral Gore MD Pre Op Diagnosis: Menorrhagia, Hymen Remnant Patient Data Age: 28 Gender: F Height: 1.65 m Weight: 87.9 kg Last Vital Signs Temp 98.3 F 02/03/24 11:38 Pulse 62 02/03/24 11:38 Resp 16 02/03/24 11:38 BP 113/73 02/03/24 11:38 Pulse Ox 100 02/03/24 11:38 Allergies Allergy/AdvReac Type Severity Reaction Status Date / Time No Known Allergies Allergy Verified 02/03/24 11:34 Home Medications Medication Instructions Recorded Confirmed Type fluoxetine 20 mg tablet See Rx Instructions .Route 12/03/23 01/27/24 Rx .COMPLEX #90 tabs Concerta 36 mg tablet,extended 36 mg PO QAM #30 tabs 01/10/24 01/27/24 Rx release (methylphenidate HCl) aluminum chloride 20 % topical 1 applic topical PRN PRN Skin 01/27/24 01/27/24 History solution Irritation calcium 500 mg tablet 500 mg PO DAILY 01/27/24 01/27/24 History ferrous sulfate 325 mg (65 mg 325 mg PO DAILY 01/27/24 01/27/24 History iron) tablet (iron) Laboratory Tests 02/03/24 11:37 POC Urine HCG, Qual Negative POC Ur Preg QC Yes Patient hx anesthesia problems: none Family hx anesthesia problems: none Results Review: All pre-operative results and documents have been reviewed as part of the pre-operative evaluation. [facility] Past Medical History Medical History Attention-deficit hyperactivity disorder, predominantly inattentive type Hypothyroid Marijuana use quit with PCOS (polycystic ovarian syndrome) Surgical History Surgical History History of bariatric surgery 08/2020 gastric sleeve History of x2 Hx of tubal ligation 05/2022 with Family History Family History Father Acute myocardial infarction Cerebrovascular accident Heart disease Hypertension Grandparent Acute myocardial infarction Heart disease Hypertension Grandparent Depression Hypertension Sibling Depression Mother Hypertension Social History Social History Smoking packs per day: 1 Smoking cigarettes per day: 20.0 Years smoked: 10 Smoking pack-years: 10.00 Smoking status: Former smoker Tobacco type: cigarettes Second hand tobacco smoke exposure: No Smoking end date: 06/17/16 Additional smoking assessment comments: STOPPED 2019 Alcohol intake: former Substance use: never Substance use type: marijuana Other substance usage details: daily Lack of Transportation: No Lack of Food: Never True Current Housing: I Do Not Have Housing Concerned About Future Housing: No Difficulty Paying Gas/Electric Bills: No Difficulty Paying for Meds: No Currently Unemployed: No Education: High School Diploma/GED Difficulty w/ Childcare or Family Care: No Living arrangements: with family Additional living arrangements comments: Spouse and daughter Gender identity (if verbalized by the patient): Female Sexual Orientation (if Verbalized by the Patient): Straight or Heterosexual Spiritual care concerns: No Agree to blood products: Yes Anes - Eval Final PreProcedure Day of Procedure 02/03/24 11:58 Patient weight: overweight Heart: regular rate and rhythm Lungs: clear to auscultation Airway: Mallampati scale class II Neurological: alert and oriented Last oral intake: >/= 8 hours ASA classification: II Emergent: no Anesthetic plan: proceed Anesthesia type and monitoring: general GIVS and standard monitoring Results Review: All pre-operative results and documents
[2024-02-03] MEDS: LIDO 1%/EPINEPHRINE 1:100,000 20 ML VIAL 10 ML INFILTRATE (12:39)
[2024-02-03 12:47] VITALS: BP 104/46; PULSE 71; RESP 14; O2SAT 100
--- NOTE | 2024-02-03 12:50 | P.OP_ITS ---
Procedure Note - Detailed Date of Procedure 02/03/24 Pre-op Diagnosis Menorrhagia, Hymen Remnant Post-op Diagnosis Same Procedure Performed D&C hysteroscopy excision of hymenal remnant Surgeon Hiral Gore MD Anesthesia MAC and Local ( 1% lidocaine with epinephrine) Findings the uterus sounds to 9cm and appears grossly normal the hymenal ring is enlarged from 2:00 to 6:00 Description of Procedure The patient is taken to the operating room and placed under anesthesia in the dorsal lithotomy position. She was prepped and draped in the usual sterile fashion. [place] speculum was placed in the vagina and the cervix grasped on the anterior lip with a tenaculum. The uterus is sounded to 9cm and the diagnostic hysteroscope placed. With no abnormalities noted, the hysteroscope was removed after picture documentation was performed. The sharp OO curette was used to curette the endometrium until a good uterine cry was noted in all areas. The speculum was then removed. Attention was turned to the hymenal ring and from 2:00 to 6:00 a.m. is enlarged. The base is injected with 1% lidocaine with epinephrine from 2 to 6 o'clock. Metzenbaum scissors were used to excise the excess tissue. The tissue is discarded. The incision was then closed using 3-0 Vicryl in a running stitch. Good hemostasis is obtained. The patient was awakened from anesthesia and taken to recovery in stable condition. Sponge, needle, and instrument counts are correct per the OR staff. Estimated Blood Loss 5 Drains No Packing No Pathology Yes ( Endometrial curettings) Complications No immediate complications Condition Stable Disposition PACU
[2024-02-03 13:15] VITALS: BP 113/69; PULSE 54; RESP 14; O2SAT 100
[2024-02-03 13:45] VITALS: BP 109/76; PULSE 55; RESP 14
== END 2024-02-03 13:50 | disposition home or self-care (01) ==
PROVIDERS: PCP Family Medicine Adolescent Medicine; Visit Provider Obstetrics & Gynecology Gynecology
PROC: 0U5B8ZZ Destruction of Endometrium, Via Natural or Artificial Opening Endoscopic (ICD-10-PCS; CPT 58563; principal; 2024-02-03 13:15)
DX: N89.6 Tight hymenal ring (principal); N92.0 Excessive and frequent menstruation with regular cycle; N89.8 Other specified noninflammatory disorders of vagina; D64.9 Anemia, unspecified; F90.0 Attention-deficit hyperactivity disorder, predominantly inattentive type; E03.9 Hypothyroidism, unspecified; E28.2 Polycystic ovarian syndrome; F12.90 Cannabis use, unspecified, uncomplicated; Z98.890 Other specified postprocedural states; Z98.84 Bariatric surgery status; Z98.51 Tubal ligation status; Z87.891 Personal history of nicotine dependence; Z82.49 Family history of ischemic heart disease and other diseases of the circulatory system
CPT/HCPCS: 58558; 56700; 88305; A9270; J1100; J2250; J2405; J2704; J3010

== ENCOUNTER 2024-09-26 07:39 | Outpatient (CLI) | payer OTHER, SELFPAY ==
--- OUTSIDE RECORDS SUMMARY | 2024-09-26 07:41 | XMS_ITS | Clinical Summary ---
Author Organization [facility] Address [address] [place] [address] Phone Care Team Providers Care Flexible Babysitter Name Role Phone Urbano Bee MD Primary Care Provider [phone] Allergies No known active allergies Medications venlafaxine (EFFEXOR) 75 mg tablet Take 75 mg by mouth 2 times daily. Active HYDROcodone-acet aminophen (HYCET) 7.5-325 mg/15 mL SolutionIndicati ons:Morbid obesity with body mass index of 40.0-49.9 (CMS/[facility]) Take 15 mL by mouth every 6 hours as needed for Pain. Max Daily Amount: 60 mL 280 mL 08/30/2020 5:17 PM CDT 08/29/2020 Active famotidine (PEPCID) 20 mg tablet Take 1 Tablet (20 mg) by mouth 2 times daily. 60 Tablet 2 08/30/2020 5:17 PM CDT 08/29/2020 Active ondansetron (Zofran) 4 mg Tablet Take 1 Tablet (4 mg) by mouth every 8 hours as needed for nausea or vomiting. 50 Tablet 08/30/2020 5:17 PM CDT 08/29/2020 Active Active Problems Problem Noted Date Diagnosed Date Morbid obesity with body mass index of 40.0-49.9 08/29/2020 Situational mixed anxiety and depressive disorde r 08/29/2020 Social History Tobacco Use Types Packs/Day Years Used Date Smoking Tobacco: Former Cigarettes Q uit: 07/08/2014 Smokeless Tobacco: Never Alcohol Use Standard Drinks/Week Comments Never 0 (1 standard drink = 0.6 oz pur e alcohol) Comments No Sex and Gender Information Value Date Recorded Sex Assigned at Not on file Legal Sex Female 3:55 PM CDT Gender Identity Not on file Sexual Orientation Not on file Last Filed Vital Signs Vital Sign Reading Time Taken Comments Blood Pressure 152/77 08/30/2020 6:36 PM CDT Pulse 55 08/30/2020 5:25 PM CDT Temperature 36.7 C (98.1 F) 08/30/2020 6:36 PM CDT Respiratory Rate 18 08/30/2020 6:36 PM CDT Oxygen Saturation 100% 08/30/2020 6:36 PM CDT Inhaled Oxygen Concentration - - Weight 129.5 kg (285 lb 8 oz) 08/30/2020 12:13 A M CDT Height 165.1 cm (5' 5 ) 08/29/2020 11:00 AM CDT Body Mass Index 47.51 08/29/2020 11:00 AM CDT Plan of Treatment Health Maintenance Due Date Last Done Comments DTAP/TDAP/TD VACCINES (1 - Tdap) 02/04/2012 HEPATITIS B VACCINES (1 of 3 - 19+ 3-dose series) 02/04/2012 HPV/Cotest (21-29) 2014 PAP SMEAR 2014 CERVICAL CANCER SCREENING 2023 HPV/Cotest (30-65) 2023 PAP SMEAR 2023 INFLUENZA VACCINE (#1) 2024 HPV VACCINES Aged Out No longer eligi ble based on patient's age to complete this topic PNEUMOCOCCAL VACCINE 0-49 YEARS Aged Out No longer eligible based on patient's age to complete this topic Medical Devices Implanted Type Area Getter Filler Device Identifier Shelf Expiration Date Model / Serial / Lot Seamguard Endogia 60 Prpl [id number] - [id number] Implanted:Qty : 1 on 08/29/2020 by Destinee Pavon MD at [facility] N/A: Abdomen [employer] 02/22/2023 [id number] / / [id number] Seamguard Endogia 60 Prpl [id number] - [id number] Implanted:Qty : 1 on 08/29/2020 by Destinee Pavon MD at [facility] N/A: Abdomen [employer] 02/22/2023 [id number] / / [id number] Seamguard Endogia 60 Blk [id number] - [id number] Implanted:Qty : 1 on 08/29/2020 by Destinee Pavon MD at [facility] N/A: Abdomen [employer] 01/05/2023 [id number] / / [id number] Seamguard Endogia 60 Blk [id number] - [id number] Implanted:Qty : 1 on 08/29/2020 by Destinee Pavon MD at [facility] N/A: Abdomen [employer] 02/01/2023 [id number] / / [id number] Employee Health Endoclip Iii 5mm W/Cliplogic [id number] - [id number] Implanted:Qty : 1 on 08/29/2020 by Destinee Pavon MD at [facility] N/A: Abdomen [employer] 05/16/2023 [id number] / / [id number] Insurance OPTIONS PPO [id number] RX [employer] (INTERNAL) [facility] Internal Plans Advance Directives For more information, please contact: [phone] Documents on File Type Date Recorded Patient Integrated Marketing Specialist Expl anation Authorization to Represent 09/06/2020 3:39 PM Authorization to Represent Authorization to Represent 07/14/2020 9:26 AM Authorization to Represent * Full Code (Latest Code Status on File) Date Activated Date Inactivated Comments 08/29/2020 10:51 AM 08/30/2020 9:29 PM Care Teams Flexible Babysitter Relationship Specialty Start Date End Date Urbano Bee MD PCP - General Family Practice 07/08/20
[2024-09-26 07:51] LABS: Hemoglobin 12.5 g/dL (12.0-15.0); Mean Corpuscular HGB Conc 34.7 g/dL (32-36); Mean Corpuscular Volume 86.3 fL (78.0-102.0); Mean Platelet Volume 10.5 fl (9.2-11.8); Platelet Count Result 216 K/mm3 (150-420); Red Blood Count 4.17 M/mm3 (4.20-5.40); Red Cell Distribution Width 11.8 % (11.6-14.4); White Blood Count 3.3 K/mm3 (4.8-10.8)
[2024-09-26 08:40] LABS: Alanine Aminotransferase 17 U/L (14-59); Albumin Level 3.4 g/dL (3.4-5.0); Alkaline Phosphatase 62 U/L (46-116); Anion Gap 7 mmol/L (4-12); Aspartate Amino Transferase 13 U/L (15-37); Bilirubin,Total 0.4 mg/dL (0.00-1.00); Blood Urea Nitrogen 13 mg/dL (7-18); Calcium 8.7 mg/dL (8.5-10.1); Carbon Dioxide 29 mmol/L (21-32); Chloride 105 mmol/L (98-108); Cholesterol 265 mg/dL (0-200); Estimated Glomerular Filt Rate > 60; Glucose 82 mg/dL (70-99); HDL Direct 79 mg/dL (40-60); Iron 95 ug/dL (50-170); LDL Cholesterol Calculated 161 mg/dL (<130); Osmolality Calculated 291 mOsm/kg (285-295); Percent Iron Saturation 21 % (12-57); Potassium 4.3 mmol/L (3.5-5.1); Sodium 141 mmol/L (136-145); Total Protein 6.9 g/dL (6.4-8.2); Triglycerides 123 mg/dL (0-150); Vitamin B12 552 pg/mL (193-986)
[2024-09-26 08:41] LABS: Thyroid Stimulating Hormone Reflex 1.87 u/IU/mL (0.36-3.74)
[2024-09-26 08:50] LABS: Eosinophils Absolute Manual 0.06 K/mm3 (0.02-0.50); Eosinophils Percent Manual 2 % (1-6); Lymphocytes Absolute Manual 0.39 K/mm3 (1.1-4.5); Lymphocytes Percent Manual 12 % (18-44); Monocytes Absolute Manual 0.09 K/mm3 (0.1-0.90); Monocytes Percent Manual 3 % (3-9); Neutrophils Percent Manual 83 % (46-73); Total Cells Counted 100
[2024-09-26 08:51] LABS: Platelet Estimate Adequate (Adequate)
== END 2024-09-26 07:40 | disposition home or self-care (01) ==
LOC: CHSLAB 07:39
PROVIDERS: PCP Nurse Practitioner Family; Visit Provider Nurse Practitioner Family
DX: E78.00 Pure hypercholesterolemia, unspecified (principal); N92.0 Excessive and frequent menstruation with regular cycle; E83.51 Hypocalcemia; G25.81 Restless legs syndrome; D64.9 Anemia, unspecified; F90.0 Attention-deficit hyperactivity disorder, predominantly inattentive type
CPT/HCPCS: 36415; 80053; 80061; 82607; 83540; 83550; 84443; 85025

== ENCOUNTER 2025-03-24 08:15 | Outpatient (CLI) | payer OTHER, SELFPAY ==
[2025-03-24 08:25] LABS: Hematocrit 37.0 % (35.0-49.0); Hemoglobin 12.4 g/dL (12.0-15.0); Mean Corpuscular HGB Conc 33.5 g/dL (32-36); Mean Corpuscular Hemoglobin 29.2 pg (27.0-31.0); Mean Corpuscular Volume 87.1 fL (78.0-102.0); Platelet Count Result 195 K/mm3 (150-420); Red Blood Count 4.25 M/mm3 (4.20-5.40); White Blood Count 3.6 K/mm3 (4.8-10.8)
[2025-03-24 08:44] LABS: Band Neutrophils Percent 0 % (0-6); Eosinophils Absolute Manual 0.07 K/mm3 (0.02-0.50); Eosinophils Percent Manual 2 % (1-6); Lymphocytes Absolute Manual 0.93 K/mm3 (1.1-4.5); Lymphocytes Percent Manual 26 % (18-44); Monocytes Absolute Manual 0.32 K/mm3 (0.1-0.90); Monocytes Percent Manual 9 % (3-9); Neutrophils Absolute Manual 2.26 K/mm3 (1.3-6.7); Neutrophils Percent Manual 63 % (46-73); Total Cells Counted 100
[2025-03-24 08:53] LABS: Alanine Aminotransferase 14 U/L (6-35); Albumin Level 4.4 g/dL (3.5-5.1); Alkaline Phosphatase 52 U/L (38-126); Anion Gap 7 mmol/L (4-12); Aspartate Amino Transferase 26 U/L (14-36); Bilirubin,Total 0.6 mg/dL (0.2-1.3); Blood Urea Nitrogen 13 mg/dL (7-17); Calcium 9.7 mg/dL (8.4-10.2); Carbon Dioxide 29 mmol/L (22-30); Chloride 103 mmol/L (98-107); Estimated Glomerular Filt Rate > 60; Glucose 88 mg/dL (65-110); Osmolality Calculated 287 mOsm/kg (285-295); Potassium 4.7 mmol/L (3.4-5.0); Sodium 139 mmol/L (137-145); Total Protein 7.6 g/dL (6.3-8.2)
== END 2025-03-24 08:16 | disposition home or self-care (01) ==
PROVIDERS: PCP Nurse Practitioner Family; Visit Provider Nurse Practitioner Family
DX: E28.2 Polycystic ovarian syndrome (principal); N92.0 Excessive and frequent menstruation with regular cycle; D64.9 Anemia, unspecified
CPT/HCPCS: 36415; 80053; 85025

== ENCOUNTER 2025-03-26 10:08 | Outpatient (CLI) | payer OTHER, SELFPAY ==
[2025-03-26 10:33] LABS: Hematocrit 35.7 % (35.0-49.0); Hemoglobin 12.2 g/dL (12.0-15.0); Mean Corpuscular HGB Conc 34.2 g/dL (32-36); Mean Corpuscular Hemoglobin 29.8 pg (27.0-31.0); Mean Corpuscular Volume 87.1 fL (78.0-102.0); Platelet Count Result 183 K/mm3 (150-420); Red Blood Count 4.10 M/mm3 (4.20-5.40); White Blood Count 3.5 K/mm3 (4.8-10.8)
[2025-03-26 11:06] LABS: HIV 1 P24 AG Negative (Negative); HIV 1/2 AB Negative (Negative)
[2025-03-26 12:59] LABS: Band Neutrophils Percent 0 % (0-6); Lymphocytes Absolute Manual 1.12 K/mm3 (1.1-4.5); Lymphocytes Percent Manual 32 % (18-44); Monocytes Absolute Manual 0.14 K/mm3 (0.1-0.90); Monocytes Percent Manual 4 % (3-9); Neutrophils Absolute Manual 2.24 K/mm3 (1.3-6.7); Neutrophils Percent Manual 64 % (46-73); Total Cells Counted 100
[2025-03-29 15:08] LABS: Albumin 3.6 g/dL (2.9-4.4); Alpha-1-Globulin 0.3 g/dL (0.0-0.4); Alpha-2-Globulin 0.9 g/dL (0.4-1.0); Gamma Globulin 0.9 g/dL (0.4-1.8)
[2025-03-31 08:09] LABS: Immunoglobulin A 130 mg/dL (70-400); Immunoglobulin G 878 mg/dL (700-1600); Immunoglobulin M 90 mg/dL (40-230)
== END 2025-03-26 10:09 | disposition home or self-care (01) ==
LOC: CHSLAB 10:09
PROVIDERS: PCP Nurse Practitioner Family; Visit Provider Nurse Practitioner Family
DX: D72.819 Decreased white blood cell count, unspecified (principal)
CPT/HCPCS: 36415; 82784; 84155; 84165; 85025; 86361; 87806